=== PATIENT | female | born 1935 | race Caucasian/White ===

== ENCOUNTER 2018-05-22 10:58 | Emergency (ER) | payer MEDICARE, BC ==
[2018-05-22 12:17] VITALS: BP 127/78
--- NOTE | 2018-05-22 12:26 | UC ---
Skin Complaint HPI - HPI Summary HPI Summary: Pt c/o sudden onset of blister- like rash under bilateral eyes that is "very itchy". Pt was gardening a "couple days ago" and woke with erythematous, fluid filled pruritic rash under bilateral eyes. - History of Current Complaint Chief Complaint: UCSkin Time Seen by Provider: 05/22/18 12:18 Stated Complaint: SKIN COMPLAINT Hx Obtained From: Patient ?: No Onset/Duration: Sudden Onset, Lasting Days, Still Present Skin Exposure Onset/Duration: Days Ago Timing: Constant Onset Severity: Mild Current Severity: Mild Pain Intensity: 0 Location: Discrete, Face Character: Pruritus, Redness, Raised Aggravating Factor(s): Touch Alleviating Factor(s): Unknown Associated Signs & Symptoms: Positive: Rash Related History: Possible Reaction to: Environmental Exposure - Allergy/Home Medications Allergies/Adverse Reactions: Allergies Allergy/AdvReac Type Severity Reaction Status Date / Time No Known Allergies Allergy Verified 05/22/18 12:14 Home Medications: Home Medications Amlodipine Besylate [Norvasc 5 mg tab] 5 mg PO DAILY 05/22/18 [History Confirmed 05/22/18] Dabigatran Etexilate Mesylate [Pradaxa] 150 mg PO DAILY 05/22/18 [History Confirmed 05/22/18] Esomeprazole Magnesium [Nexium] 40 mg PO DAILY 05/22/18 [History Confirmed 05/22] Furosemide 20 mg PO DAILY 05/22/18 [History Confirmed 05/22/18] Levothyroxine Sodium [Levoxyl] 100 mcg PO DAILY 05/22/18 [History Confirmed ] Lisinopril TAB* [Prinivil TAB 10 MG*] 20 mg PO DAILY 05/22/18 [History Confirmed 05/22/18] Metoprolol Succinate 25 mg PO DAILY 05/22/18 [History Confirmed 05/22/18] Simvastatin 20 mg PO DAILY 05/22/18 [History Confirmed 05/22/18] metFORMIN* [Glucophage 500 MG TAB *] 750 mg PO DAILY 05/22/18 [History Confirmed 05/22/18] Review of Systems Constitutional: Negative Skin: Rash Eyes: Negative ENT: Negative Respiratory: Negative Cardiovascular: Negative Gastrointestinal: Negative Genitourinary: Negative Motor: Negative Neurovascular: Negative Musculoskeletal: Negative Neurological: Negative Psychological: Negative Is Patient Immunocompromised?: No All Other Systems Reviewed And Are Negative: Yes PMH/Surg Hx/FS Hx/Imm Hx Previously Healthy: Yes - Surgical History Surgery Procedure, Year, and Place: HYSTERECTOMY. LAP [place]. THYROID. LEFT SHOULDER - Family History Known Family History: Positive: Cardiac Disease - Social History Occupation: Retired Lives: With Family Alcohol Use: Occasionally Substance Use Type: None Smoking Status (MU): Never Smoked Tobacco Have You Smoked in the Last Year: No Physical Exam Triage Information Reviewed: Yes Appearance: Well-Appearing Vital Signs: Initial Vital Signs Temp 98.7 F 05/22/18 12:10 Pulse 109 05/22/18 12:10 Resp 17 05/22/18 12:10 BP 127/78 05/22/18 12:10 Pulse Ox 99 05/22/18 12:10 Vital Signs Reviewed: Yes Eye Exam: Other Eyes: Positive: Other: - skin below bialteral eyes, mild swelling, larg, fluid filled vessicles, mild erythema, c/o pruritis ENT: Positive: Hearing grossly normal Dental Exam: Normal Neck exam: Normal Respiratory Exam: Normal Cardiovascular Exam: Normal Cardiovascular: Positive: Tachycardia Musculoskeletal Exam: Normal Neurological Exam: Normal Psychological Exam: Normal Skin: Positive: rashes - face bilateral under each eye Course/Dx - Differential Diagnoses - Skin Complaint Differential Diagnoses: Allergic Reaction, Contact Dermatitis, Poison Aishwarya - Diagnoses Provider Diagnoses: poison aishwarya. allergic reaction to poison aishwarya Discharge - Sign-Out/Discharge Documenting (check all that apply): Patient Departure - Discharge Plan Condition: Stable Disposition: HOME Prescriptions: Cetirizine* [ZyrTEC 10 MG TAB*] 10 mg PO DAILY #5 tab predniSONE TAB* [Deltasone 20 MG TAB*] 20 mg PO DAILY #5 tab Patient Education Materials: Poison Aishwarya (ED) Referrals: [facility] [Outside] - If Needed No Primary Care Phys,NOPCP [Primary Care Provider] - Additional Instructions: Please follow up with your PCP or return to clinic as needed. Please monitor your glucose levels more frequently with use of prednisone. Per institutional requirements, I have reviewed the chart, however, I was not consulted specifically or made aware of this patient by the above midlevel provider. I did not personally evaluate, interact with , or disposition this patie - Billing Disposition and Condition Condition: STABLE Disposition: Home
== END 2018-05-22 12:42 | disposition home or self-care (01) ==
LOC: UCCORT 10:58
DX: L23.7 Allergic contact dermatitis due to plants, except food (principal)
CPT/HCPCS: 99202; G0463